=== PATIENT | male | born 1970 | race Two or more races ===

== ENCOUNTER → 2024-06-01 | Outpatient (CLI) | payer BC, SELFPAY ==
[2024-06-01 08:30] LABS: Basophils # (Auto) 0.1 Thou/mm3 (0.0-0.2); Basophils % (Auto) 1 % (0-2.5); Eosinophils # (Auto) 0.2 Thou/mm3 (0.0-0.5); Eosinophils % (Auto) 4 % (0-10); Hemoglobin 16.4 g/dL (13.5-16.0); Immature Granulocytes % (Auto) 0 % (0-0); Immature Granulocytes Auto 0.01 Thou/mm3 (0.00-0.00); Lymphocytes # (Auto) 2.9 Thou/mm3 (1.0-4.8); Lymphocytes % (Auto) 47 % (10-50); Mean Corpuscular HGB Conc 34.9 g/dl (31.0-37.0); Mean Corpuscular Hemoglobin 32.4 pg (25.0-35.0); Mean Corpuscular Volume 93 fL (80-100); Monocytes # (Auto) 0.5 Thou/mm3 (0.0-0.8); Monocytes % (Auto) 8 % (0-12); Neutrophils # (Auto) 2.5 Thou/mm3 (1.8-7.7); Neutrophils % (Auto) 40 % (37-80); Nucleated Red Blood Cell % 0 /100 WBC (0); Platelet Count 219 Thou/mm3 (140-440); RDW Standard Deviation 43.3 fL (35.1-43.9); Red Blood Count 5.06 Miln/mm3 (4.50-5.90); White Blood Count 6.2 Thou/mm3 (3.8-10.6)
[2024-06-01 08:41] LABS: Glucose Estimated Average 111 mg/dL (80-131); Hemoglobin A1C 5.5 % Hgb (4.8-6.0)
[2024-06-01 08:52] LABS: Alanine Aminotransferase 85 U/L (10-49); Albumin, Serum 4.8 gm/dL (3.5-5.0); Albumin/Globulin Ratio 1.5 (1.2-2.2); Alkaline Phosphatase 65 U/L (46-116); Anion Gap 11 (7-16); Aspartate Amino Transferase 85 U/L (0-34); BUN/Creatinine Ratio 12 Ratio (12-20); Blood Urea Nitrogen 12 mg/dL (9-23); Carbon Dioxide 24.9 mMol/L (20.0-31.0); Cardiac Risk Estimate 3.4 RATIO (4.0-6.7); Chloride 103 mMol/L (98-107); Cholesterol 225 mg/dL (132-200); Globulin 3.3 gm/dL (2.3-3.5); Glucose 111 mg/dL (74-106); HDL Cholesterol 66 mg/dL (40-60); LDL Cholesterol,Calculated 129 mg/dL (0-130); Osmolality,Calculated 278 (275-295); Sodium 139 mMol/L (136-145); Total Protein 8.1 gm/dL (5.7-8.2); Triglycerides 149 mg/dL (30-150); eGFR > 60 See Note
== END | disposition home or self-care (01) ==
LOC: COPL 07:42
PROVIDERS: PCP Internal Medicine; Referring Provider Internal Medicine; Visit Provider Internal Medicine
DX: I10 Essential (primary) hypertension (principal); K76.0 Fatty (change of) liver, not elsewhere classified; R74.01 Elevation of levels of liver transaminase levels
CPT/HCPCS: 36415; 80053; 80061; 83036; 84443; 85025

== ENCOUNTER → 2024-10-31 | Outpatient (CLI) | payer BC, SELFPAY | END | disposition home or self-care (01) | PROVIDERS: PCP Student in an Organized Health Care Education/Training Program; Referring Provider Student in an Organized Health Care Education/Training Program; Visit Provider Student in an Organized Health Care Education/Training Program | DX: S81.852A Open bite, left lower leg, initial encounter (principal); S81.851A Open bite, right lower leg, initial encounter; S31.159A Open bite of abdominal wall, unspecified quadrant without penetration into peritoneal cavity, initial encounter; W57.XXXA Bitten or stung by nonvenomous insect and other nonvenomous arthropods, initial encounter; I10 Essential (primary) hypertension; J30.9 Allergic rhinitis, unspecified; E03.9 Hypothyroidism, unspecified; K76.0 Fatty (change of) liver, not elsewhere classified; B58.9 Toxoplasmosis, unspecified; F10.90 Alcohol use, unspecified, uncomplicated; E55.9 Vitamin D deficiency, unspecified | CPT/HCPCS: 99215; A9270; G0463 ==

== ENCOUNTER → 2024-12-05 | Outpatient (CLI) | payer BC, SELFPAY | END | disposition home or self-care (01) | LOC: SWHD 10:34 | PROVIDERS: PCP Internal Medicine; Referring Provider Internal Medicine; Visit Provider Student in an Organized Health Care Education/Training Program | DX: S81.852A Open bite, left lower leg, initial encounter (principal); S81.851A Open bite, right lower leg, initial encounter; S31.159A Open bite of abdominal wall, unspecified quadrant without penetration into peritoneal cavity, initial encounter; W57.XXXA Bitten or stung by nonvenomous insect and other nonvenomous arthropods, initial encounter; I10 Essential (primary) hypertension; J30.9 Allergic rhinitis, unspecified; E03.9 Hypothyroidism, unspecified; K76.0 Fatty (change of) liver, not elsewhere classified; F10.90 Alcohol use, unspecified, uncomplicated; E55.9 Vitamin D deficiency, unspecified | CPT/HCPCS: 99213; A9270; G0463 ==